=== PATIENT | male | born 1940 | race Caucasian/White ===

== ENCOUNTER → 2018-02-05 | Day surgery (SDC) | payer MEDICARE, BC ==
[~2018-02-05] VITALS: Ht 185.4 cm; Wt 79.5 kg
[~2018-02-05] MED LIST: AMLO5CAP PO; ASPI-516 CHEW; ATOR20TA15 PO; CEPH-459 PO; CHLORHEXIDINE GLUCONATE 2 % 1 PACK (2 CLOTHS) TOPICAL PRN; DEXAMETHASONE SOD PHOS 4 MG/ML VIAL IV ONE; FAMOTIDINE 20 MG/2 ML VIAL ONE; HYDR-3288 PO; KETOROLAC TROMETHAMINE 30 MG/ML (IVP) VIAL IV PUSH ONE; LACTATED RINGER'S 1000 ML INJ 1,000 ML IV ONE; LACTATED RINGER'S 1000 ML IV PRN; LIDOCAINE HCL 1% PF 5 ML SYRINGE OTHER ONE; LIDOCAINE HCL 2% 50 ML VIAL ONE; METOPROLOL TARTRATE 25 MG TAB PO PRN; MIDAZOLAM HCL 2 MG/2 ML VIAL ONE; NEOMYCIN/POLYMYXIN 1 ML G.U. IRRIGANT ONE; OMEP40CA2 PO; ONDANSETRON HCL 4 MG/2 ML VIAL IV PUSH ONE; POVIDONE IODINE 5% (ANTISEPSIS KIT) 4 APPLICATIONS EACH NARE PRN; PROPOFOL 200 MG/20 ML AMP IV ONE; SODIUM CHLORID 0.9% 500 ML IV PRN; ceFAZolin 1,000 MG/NS 100 ML IV SCH
[2018-02-05 06:56] LABS: HEMATOCRIT 41.6 % (39.0-51.0); HEMOGLOBIN 13.5 GM/DL (13.0-17.0); MEAN CELL VOLUME 93.2 FL (80.0-100.0); MEAN CORPUSCULAR HEMOGLOBIN 30.3 PG (27.0-34.0); MEAN CORPUSCULAR HGB CONC 32.5 % (32.0-36.0); MEAN PLATELET VOLUME 8.9 FL (7.0-11.0); PLATELET COUNT 208 TH/MM3 (150-450); RED BLOOD COUNT 4.47 MIL/MM3 (4.50-5.90); RED CELL DISTRIBUTION WIDTH 13.7 % (11.6-17.2); WHITE BLOOD COUNT 8.4 TH/MM3 (4.0-11.0)
[2018-02-05] MEDS: BUPIVACAINE HCL PF 0.5% 30 ML VIAL ONE (08:30)
[2018-02-05 10:03] VITALS: PULSE 85
--- NOTE | 2018-02-05 10:45 | MP ---
cc: Jared Villa MD DATE OF OPERATION: 02/05/2018 PREOPERATIVE DIAGNOSIS: Right third and right fifth Dupuytren contractures. PROCEDURE: 1. Right third palmar fasciectomy after the proximal interphalangeal joint with tissue rearrangement closure. 2. Right fifth palmar fasciectomy out the to proximal interphalangeal joint with tissue rearrangement closure. SURGEON: Jared Villa MD TOURNIQUET TIME: 41 minutes at 200 mmHg. PROCEDURE: The patient brought to the operating room, placed supine on the operating table. After the correct side and site of surgery were verified by members of each team in the room multiple times, including the patient and myself, and after adequate preoperative markings and preoperative written consent were verified by everyone, after adequate preoperative timeout was performed to everyone's satisfaction, and after adequate general anesthesia was achieved, the right upper extremity was prepped and draped in a traditional sterile surgical fashion. A 50/50 mixture of 2% plain lidocaine and 0.5% plain Marcaine was infiltrated in skin and subcutaneous tissue at the base of the palm for operative pain control. The limb was exsanguinated with a gentle Jayy wrap and highly placed, well-padded axillary tourniquet was inflated to 200 mmHg for a total of 41 minutes. The hand was placed palm up in a Lead Hand. The incisions were made, keeping in mind the skin creases, going all the way from the base of the palm to the PIP joint. Blunt dissection was performed. Bipolar electrocautery was used sparingly. The palmar fascia was then dissected free from the skin and subcutaneous tissue. Neurovascular bundles were then identified, protected the entire time. The cord was dissected free completely out to the PIP joint, and this finger was completely extended and easily hyperextended, and the palmar fascial cord was passed out the field as specimen. The flexor tendons were not affected in any way, and at completion, the neurovascular bundles were also found to be noncompromised and in continuity. Thorough irrigation was performed. The identical procedure was then preformed meticulously for the fifth finger, starting from the palm, going out to the PIP joint. The axillary tourniquet was then released. There was no active bleeding. Minimal oozing. Pressure was held for 10 minutes. A thorough irrigation with saline was performed. The skin edges were then reapproximated using multiple interrupted and running 4-0 nylon suture, rearranging skin as needed and allowing no right angles to cross at the flexion creases. There were 2 or 3 small areas with a 4 mm wound that were allowed to stay open. Thorough irrigation was again used. A 1/4 inch Deion drain split in 2 longitudinally was used and placed in 2 different places for drains. The hand and arm were thoroughly cleansed, dried, Betadine, Adaptic dressings applied top of the wound, followed by a bulky soft dressing, volar immobilizing short arm splint, keeping all the fingers completely extended. The fingers were soft, pink and warm and had brisk capillary refill less than 2 seconds in all of them, including the third and fifth. The patient was awakened from anesthesia and transferred to the post-anesthesia care unit awake and in stable condition at the end of the case. The sponge, needle and instruments counts were correct at the end of the case as reported by the nurses in the room. MD SINGH Smith/SHONA , 10:14 AM , 10:44 AM
[2018-02-05 11:30] VITALS: BP 147/68; PULSE 72; RESP 16; TEMP 98; O2SAT 98
--- NOTE | 2018-02-05 23:02 | EKG ---
Date Performed: 02/05/2018 Time Performed: 06:57:43 PTAGE: 77 years EKG: Sinus rhythm INCOMPLETE RIGHT BUNDLE BRANCH BLOCK BORDERLINE ECG PREVIOUS TRACING : 08/04/2008 15.35 Since the previous tracing, no significant change noted DOCTOR: Ran Escobar Interpretating Date/Time 02/05/2018 23:01:54
== END | disposition home or self-care (01) ==
LOC: PHSDC 06:06
PROVIDERS: ATTEND Orthopaedic Surgery Hand Surgery
DX: M72.0 Palmar fascial fibromatosis [Dupuytren] (principal); I45.10 Unspecified right bundle-branch block
CPT/HCPCS: 01810; 26121; 36415; 85027; 88304; 93005; J0690; J1100; J1885; J2250; J2405; J3010; J7120; 88305